=== PATIENT | female | born 2000 | race Caucasian/White ===

== ENCOUNTER 2020-12-09 21:02 | Emergency (ER) | payer MEDICAID, SELFPAY ==
[2020-12-09 21:06] VITALS: BP 107/69; PULSE 98; RESP 18; TEMP 36.6; O2SAT 98
[2020-12-09 21:21] LABS: Basophils Percent Auto 0.2 % (0.2-1.2); Eosinophils Absolute Auto 0.3 K/mm3 (0-0.3); Hemoglobin 13.4 g/dL (12.0-15.0); Immature Granulocyte Absolute 0.05 K/mm3 (0.00-0.031); Immature Granulocyte Percent A 0.4 % (0-0.5); Lymphocytes Absolute Auto 2.26 K/mm3 (0.9-3.2); Lymphocytes Percent Auto 18.2 % (18.3-44.2); Mean Corpuscular HGB Conc 33.5 g/dl (32-36); Mean Corpuscular Hemoglobin 29.5 pg (26-34); Mean Corpuscular Volume 88.1 fl (80-100); Mean Platelet Volume 10.8 fl (7.4-10.4); Monocytes Absolute Auto 0.6 K/mm3 (0.1-0.6); Monocytes Percent Auto 5.1 % (2.6-8.5); Neutrophils Absolute Auto 9.2 K/mm3 (1.3-6.7); Neutrophils Percent Auto 74.1 % (45.5-73.1); Platelet Count Result 263 k/mm3 (150-375); Red Blood Count 4.54 M/mm3 (4.2-5.4); Red Cell Distribution Width 13.1 % (11.5-14.5); White Blood Count 12.4 K/mm3 (4.5-10.0)
[2020-12-09 21:32] LABS: Alanine Aminotransferase 13 U/L (4-35); Alkaline Phosphatase 55 U/L (38-126); Anion Gap 7 mmol/L (8-16); Aspartate Amino Transferase 17 U/L (14-36); Bilirubin,Total 0.2 mg/dL (0.2-1.3); Blood Urea Nitrogen 11 mg/dL (7-17); Calcium 9.4 mg/dL (8.4-10.2); Carbon Dioxide 25 mmol/L (22-30); Chloride 106 mmol/L (98-107); Estimated CRCL calculation 128 ml/min; Estimated Glomerular Filt Rate > 60; Glucose 100 mg/dL (65-105); Lipase 59 U/L (23-300); Sodium 138 mmol/L (137-145)
[2020-12-09 21:40] LABS: Add Urine Microscopic? YES; Appearance Urine Cloudy (Clear); Bacteria Urine 1+ /hpf; Bilirubin Urine Negative (Negative); Calcium Oxalate Crystals Urine Present /hpf; Color Urine Yellow (Yellow); Glucose Urine UA Negative (Negative); Ketones Urine Negative (Negative); Leukocyte Esterase Ur 3+ LEU/UL (Negative); Mucus Urine Heavy /lpf; Nitrate Urine Negative (Negative); Protein Urine 2+ mg/dL (Negative); Specific Grav Ur 1.029 (1.001-1.035); Squamous Epithelial Cell Urine Many /hpf (Few); WBC Urine 31-50 /hpf
[2020-12-09 21:41] LABS: Blood Urine Negative (Negative)
--- NOTE | 2020-12-09 21:51 | ED.GENADULT ---
HPI - General Adult General Chief complaint: Nausea/Vomiting/Diarrhea Stated complaint: think i am dehydrated, need a work note Time Seen by Provider: 12/09/20 21:42 History of Present Illness HPI narrative: Patient is a 20-year-old female who presents to the ER with nausea and vomiting. Began earlier today. Has history of hyperemesis gravidarum during this . She follows with an OB at [facility]. No inciting events today. No abdominal pain. She is burning urination/urinary frequency. No fevers or chills or sweats. She has not tried any antiemetics. Review of Systems Review of Systems: All systems reviewed & are unremarkable except as noted in HPI and below Constitutional: Constitutional: Denies chills, Denies fever(s) and Denies weakness ENT: Denies nasal congestion and Denies sore throat Cardiovascular: Cardiovascular: Denies chest pain, Denies rapid heart rate and Denies radiating jaw, neck or arm pain Respiratory: Respiratory: Denies cough and Denies dyspnea Gastrointestinal: Gastrointestinal: Denies abdominal pain, Denies diarrhea, Reports nausea and Reports vomiting Genitourinary: Genitourinary: Denies abnormal vaginal bleeding, Denies nocturia, Denies dysuria and Denies flank pain PMFSH Past Medical History Medical History (Updated 12/09/20 @ 22:34 by Aristeo Thakkar MD) Hyperemesis Surgical History Surgical History (Updated 12/09/20 @ 21:53 by Aristeo Thakkar MD) No pertinent past surgical history Social History Social History (Updated 12/09/20 @ 21:55 by Aristeo Thakkar MD) Smoking status: Never smoker Exam Narrative: Exam Narrative: GENERAL: Well-appearing, well-nourished, and in no acute distress. HEAD: Normocephalic, atraumatic. CHEST: Clear to auscultation. No respiratory distress. HEART: Regular rate and rhythm. Normal peripheral pulses. ABDOMEN: Soft, nontender, nondistended. EXTREMITIES: Normal range of motion. No edema. No CVA tenderness. SKIN: Warm, dry, no rash. NEURO: Alert and oriented x3. PSYCH: Normal mood and affect. Course Course Emergency Course: Feeling improved. Given Macrobid for UTI. Discharge home. Vital Signs Vital signs: Vital Signs Temperature 97.9 F 12/09/20 21:06 Pulse Rate 98 12/09/20 21:06 Respiratory Rate 18 12/09/20 21:06 Blood Pressure 107/69 12/09/20 21:06 Pulse Oximetry 98 12/09/20 21:06 Temperature 97.9 F 12/09/20 21:06 Pulse Rate 98 12/09/20 21:06 Respiratory Rate 18 12/09/20 21:06 Blood Pressure 107/69 12/09/20 21:06 Pulse Oximetry 98 12/09/20 21:06 Medical Decision Making Vital Signs Vital Signs: Vital Signs Temperature 97.9 F 12/09/20 21:06 Pulse Rate 98 12/09/20 21:06 Respiratory Rate 18 12/09/20 21:06 Blood Pressure 107/69 12/09/20 21:06 Pulse Oximetry 98 12/09/20 21:06 Temperature 97.9 F 12/09/20 21:06 Pulse Rate 98 12/09/20 21:06 Respiratory Rate 18 12/09/20 21:06 Blood Pressure 107/69 12/09/20 21:06 Pulse Oximetry 98 12/09/20 21:06 Lab Data Result diagrams: 12/09/20 21:13 12/09/20 21:13 Labs: Lab Results 12/09/20 12/09/20 12/09/20 Range/Units 21:13 21:13 21:22 WBC 12.4 H (4.5-10.0) K/mm3 RBC 4.54 (4.2-5.4) M/mm3 Hgb 13.4 (12.0-15.0) g/dL Hct 40.0 (37.0-47.0) % MCV 88.1 (80-100) fl MCH 29.5 (26-34) pg MCHC 33.5 (32-36) g/dl RDW 13.1 (11.5-14.5) % Plt Count 263 (150-375) k/mm3 MPV 10.8 H (7.4-10.4) fl Immature Gran % (Auto) 0.4 (0-0.5) % Neut % (Auto) 74.1 H (45.5-73.1) % Lymph % (Auto) 18.2 L (18.3-44.2) % [place] % (Auto) 5.1 (2.6-8.5) % Eos % (Auto) 2.0 (0-4.4) % Baso % (Auto) 0.2 (0.2-1.2) % Lymph # (Auto) 2.26 (0.9-3.2) K/mm3 [place] # (Auto) 0.6 (0.1-0.6) K/mm3 Eos # (Auto) 0.3 (0-0.3) K/mm3 Baso # (Auto) 0.0 (0.0-0.1) K/mm3 Abs Immat Gran (auto) 0.05 H (0.00-0.031) K/mm3 Absolute
[2020-12-09] MEDS: NITROFURANTOIN MONOHYD MACROCR 100 MG CAP PO (22:02)
[2020-12-09] MEDS: ONDANSETRON HCL ODT 4 MG TABLET PO (22:02)
--- NOTE | 2020-12-09 22:03 | PC.NURSE ---
pt given water for po challenge per md verbal order.
--- NOTE | 2020-12-09 22:44 | PC.NURSE ---
pt denies any vomiting at this time.
[2020-12-09 23:31] VITALS: BP 118/75; PULSE 90; RESP 18; O2SAT 99
== END 2020-12-09 23:32 | disposition home or self-care (01) ==
LOC: ANHED 23:02
PROVIDERS: Emergency Medicine; Emergency Provider Emergency Medicine
DX: O23.42 Unspecified infection of urinary tract in pregnancy, second trimester (principal); Z3A.18 18 weeks gestation of pregnancy
CPT/HCPCS: 36415; 80053; 81001; 81025; 83690; 85025; 87086; 87088; 99283; A9270

== ENCOUNTER 2021-04-28 19:17 | Emergency (ER) | payer BC, SELFPAY ==
[2021-04-28] VITALS (12 sets, daily range): BP systolic 117–125; BP diastolic 72–88; PULSE 57–84; RESP 14–22; TEMP 36.7; O2SAT 98–100
[2021-04-28 21:11] LABS: Alanine Aminotransferase 52 U/L (4-35); Albumin Level 3.7 g/dL (3.5-5.1); Alkaline Phosphatase 208 U/L (38-126); Anion Gap 9 mmol/L (8-16); Aspartate Amino Transferase 30 U/L (14-36); Bilirubin,Total 0.4 mg/dL (0.2-1.3); Blood Urea Nitrogen 11 mg/dL (7-17); Calcium 9.1 mg/dL (8.4-10.2); Carbon Dioxide 24 mmol/L (22-30); Chloride 104 mmol/L (98-107); Estimated CRCL calculation 112 ml/min; Estimated Glomerular Filt Rate > 60; Glucose 80 mg/dL (65-110); Potassium 3.9 mmol/L (3.4-5.0); Sodium 137 mmol/L (137-145)
[2021-04-28] MEDS: SODIUM CHLORIDE 0.9% IV 1,000 ML 999 ML IV CONT ×2 (21:23→22:47)
[2021-04-28 21:27] LABS: Basophils Percent Auto 0.4 % (0.2-1.2); Eosinophils Absolute Auto 0.2 K/mm3 (0-0.3); Eosinophils Percent Auto 2.1 % (0-4.4); Hematocrit 33.8 % (37.0-47.0); Hemoglobin 10.9 g/dL (12.0-15.0); Immature Granulocyte Absolute 0.05 K/mm3 (0.00-0.031); Immature Granulocyte Percent A 0.6 % (0-0.5); Lymphocytes Absolute Auto 2.28 K/mm3 (0.9-3.2); Lymphocytes Percent Auto 25.1 % (18.3-44.2); Mean Corpuscular HGB Conc 32.2 g/dl (32-36); Mean Corpuscular Hemoglobin 27.7 pg (26-34); Mean Platelet Volume 10.6 fl (7.4-10.4); Monocytes Absolute Auto 0.6 K/mm3 (0.1-0.6); Monocytes Percent Auto 6.8 % (2.6-8.5); Neutrophils Absolute Auto 5.9 K/mm3 (1.3-6.7); Platelet Count Result 326 k/mm3 (150-375); Red Blood Count 3.93 M/mm3 (4.2-5.4); Red Cell Distribution Width 14.1 % (11.5-14.5); White Blood Count 9.1 K/mm3 (4.5-10.0)
--- NOTE | 2021-04-28 21:58 | ED.FEMALEGU ---
HPI - Female Genitourinary General Chief complaint: Vaginal Bleeding Stated complaint: Vaginal bleed Time Seen by Provider: 04/28/21 19:20 History of Present Illness HPI Narrative: Patient is a 21-year-old female who presents ER with vaginal bleeding. She is currently 6 days from vaginal delivery at [facility]. She sees Dr. Traore with MFM due to hyperemesis and her bipolar disorder. Patient reports lochia saturating three pads a day since her delivery. Tonight she felt her pants and then passed multiple clots that were the size of the leg. She feels weak and lightheaded. No vaginal discharge. Denies fevers or chills or sweats. She has no history of bleeding disorder. Related Data Allergies Allergy/AdvReac Type Severity Reaction Status Date / Time cephalexin AdvReac Hives Verified 04/28/21 19:28 Review of Systems Review of Systems: All systems reviewed & are unremarkable except as noted in HPI and below Constitutional: Constitutional: Denies chills and Reports fatigue ENT: Denies nasal congestion and Denies sore throat Cardiovascular: Cardiovascular: Denies chest pain, Denies rapid heart rate and Denies radiating jaw, neck or arm pain Respiratory: Respiratory: Denies cough and Denies dyspnea Gastrointestinal: Gastrointestinal: Denies abdominal pain, Denies nausea and Denies vomiting Genitourinary: Genitourinary: Reports abnormal vaginal bleeding, Denies nocturia, Denies dysuria and Denies flank pain PMFSH Past Medical History Medical History (Updated 04/28/21 @ 22:10 by Aristeo Thakkar MD) Depression Hyperemesis Surgical History Surgical History (Updated 12/09/20 @ 21:53 by Aristeo Thakkar MD) No pertinent past surgical history Social History Social History (Updated 12/09/20 @ 21:55 by Aristeo Thakkar MD) Smoking status: Never smoker Exam Narrative: GENERAL: Well-appearing, well-nourished, and in no acute distress. HEAD: Normocephalic, atraumatic. ENT: Mucous membranes moist. CHEST: Clear to auscultation. No respiratory distress. HEART: Regular rate and rhythm. Normal peripheral pulses. ABDOMEN: Soft, nontender, nondistended : Moderate amount of clot evacuated from the vagina. Pooling continuing. Cervical os is open and endometrium appears to be protruding. No discharge. Nontender. EXTREMITIES: Normal range of motion. No edema. NEURO: Alert and oriented x3.\ Course Course Emergency Course: Moderate amount of clot removed during pelvic exam. Continued swelling. Patient then with near syncope during orthostatic vital signs and collapsed onto the bed. Discussed with MFM fellow at [facility]. They have accepted patient for transfer to OB triage which acts as a ER to ER transfer. Accepted by Dr. Muro. Patient has received 1 L of IV fluid and will receive a second liter. Reevaluation(s) Reevaluation #1: I had a prolonged conversation with the patient about transfer via ambulance. After she had agreed she then changed her mind. She has been educated on the risks of leaving the hospital AGAINST MEDICAL ADVICE while bleeding. She is willing to take these risks. She does not want to go to the hospital by ambulance and prefers to go by private vehicle. We will alert [facility] that this patient has signed out and is heading their way by private vehicle as a courtesy. Additionally we will also send lab work with the patient. Date: 04/28/21 Time: 23:40 Vital Signs Vital signs: Vital Signs Temperature 98.1 F 04/28/21 19:19 Pulse Rate 78 04/28/21 19:19 Respiratory Rate 18 04/28/21 19:19 Blood Pressure 124/88 04/28/21 19:19 Pulse Oximetry 100 04/28/21 19:19 Temperature 98.1 F 04/28/21 19:19 Pulse Rate 80 04/28/21 23:11 Respiratory Rate 17 04/28/21 22:45 Blood Pressure 117/72 04/28/21 23:11 Pulse Oximetry 100 04/28/21 22:45 MDM - Female Genitourinary Lab Data Result diagrams: 04/28/21 20:49 04/28/21 20:49
--- NOTE | 2021-04-28 23:06 | PC.NURSE ---
2252: Called [facility] for ALS transport to [place] - OB/Triage. ETA [id number]
--- NOTE | 2021-04-28 23:38 | PC.NURSE ---
[facility] called with updated ETA...approximately [id number]
--- NOTE | 2021-04-28 23:51 | PC.NURSE ---
Pt states she does not wish to wait for an ambulance any longer that she would prefer to transfer by POV. Explained the risks associated with this and that the physician does not agree with this decision. Pt signed out AMA and will transfer by POV. PT's IV removed and taken to car via w/c.
--- NOTE | 2021-04-28 23:53 | PC.NURSE ---
Called [facility] and cancelled request for transport. Patient transporting by private vehicle to accepting facility.
== END 2021-04-29 00:01 | disposition left against medical advice (07) ==
PROVIDERS: Emergency Provider Emergency Medicine
DX: O72.2 Delayed and secondary postpartum hemorrhage (principal); R55 Syncope and collapse; O99.345 Other mental disorders complicating the puerperium; F31.9 Bipolar disorder, unspecified
CPT/HCPCS: 36415; 80053; 85025; 96360; 96361; 99284; J7030

== ENCOUNTER 2021-10-20 17:05 | Emergency (ER) | payer BC, SELFPAY ==
[2021-10-20 17:11] VITALS: BP 116/76; PULSE 93; RESP 20; TEMP 36.6; O2SAT 98
--- NOTE | 2021-10-20 17:28 | ED.ABDPAIN ---
HPI - Abdominal Pain General Chief Complaint: Abdominal Pain Stated Complaint: RUQ pain x 1 week Time Seen by Provider: 10/20/21 17:19 Source: patient Mode of arrival: ambulatory Limitations: no limitations History of Present Illness HPI narrative: Patient is a 21-year-old female complaining of right upper quadrant pain, 6 out of 10, sharp, nonradiating accompanied by nausea that started 1 week ago. Patient denies any chest pain, shortness of breath, back pain, vomiting, diarrhea, fever or chills. Related Data Home Medications Medication Instructions Recorded Confirmed No Home Medications 10/20/21 10/20/21 Allergies Allergy/AdvReac Type Severity Reaction Status Date / Time cephalexin AdvReac Hives Verified 04/28/21 19:28 Review of Systems Review of Systems: All systems reviewed & are unremarkable except as noted in HPI and below Constitutional: Constitutional: Denies body ache(s), Denies chills, Denies excessive sweating, Denies fatigue, Denies fever(s), Denies headache(s), Denies lethargy, Denies malaise, Denies weakness and Denies weight loss Eyes: Eyes: Denies blurry vision, Denies change in vision and Denies loss of vision ENT: Denies dizziness, Denies ear discharge, Denies headache(s), Denies lip swelling, Denies epistaxis, Denies nasal congestion, Denies neck pain, Denies throat swelling and Denies tongue swelling Cardiovascular: Cardiovascular: Denies chest pain, Denies chest pain at rest, Denies chest pain with activity, Denies diaphoresis, Denies rapid heart rate, Denies edema, Denies irregular heart rhythm, Denies lightheadedness, Denies palpitations, Denies dyspnea and Denies dyspnea on exertion Respiratory: Respiratory: Denies chest congestion, Denies cough, Denies hemoptysis, Denies dyspnea and Denies dyspnea on exertion Gastrointestinal: Gastrointestinal: Denies melena, Denies hematochezia, Denies diarrhea, Denies vomiting and Denies hematemesis Musculoskeletal: Musculoskeletal: Denies abnormal gait, Denies deformity, Denies joint swelling, Denies limited range of motion, Denies neck pain and Denies numbness Neurologic: Denies Abnormal speech present, Denies abnormal gait, Denies confusion, Denies dizziness, Denies headache(s), Denies focal weakness, Denies loss of vision, Denies numbness, Denies Other visual disturbances, Denies Sensory deficit (Neuro) and Denies weakness Psychiatric: Psychiatric: Denies confusion, Denies depression, Denies auditory hallucinations, Denies homicidal ideation and Denies suicidal ideation Endocrine: Endocrine: Denies cold intolerance, Denies excessive sweating, Denies fatigue, Denies heat intolerance and Denies palpitations Hematologic/Lymphatic: Hematologic/Lymphatic: Denies easy bleeding and Denies easy bruising Allergic/Immunologic: Allergic/Immunologic: Denies lip swelling, Denies throat swelling and Denies tongue swelling PMFSH Past Medical History Medical History Depression Hyperemesis Surgical History Surgical History No pertinent past surgical history Social History Social History Smoking status: Never smoker Exam Const: General: cooperative, healthy appearing, comfortable, no acute distress, well developed, alert and awake; No confusion Orientation/consciousness: oriented to person, oriented to place, oriented to time, patient oriented x3 and No confusion Limitations: no limitations HENMT: Head: normal to inspection, normocephalic and atraumatic Ears: hearing grossly normal bilaterally, TM normal on the right and TM normal on the left General nose exam: Normal external nose present, Normal nares present and No nasal discharge present Face and sinus: normal facial exam Mouth: Yes Normal oral and palatal mucosa present, Yes lip normal, Yes tongue normal and Yes oropharynx normal Throat
[2021-10-20 17:43] LABS: Basophils Percent Auto 0.3 % (0.2-1.2); Eosinophils Absolute Auto 0.1 K/mm3 (0-0.3); Eosinophils Percent Auto 1.5 % (0-4.4); Hematocrit 36.1 % (37.0-47.0); Hemoglobin 10.7 g/dL (12.0-15.0); Immature Granulocyte Absolute 0.01 K/mm3 (0.00-0.031); Immature Granulocyte Percent A 0.2 % (0-0.5); Immature Platelet Fraction Pct 4.3 % (0.9-11.2); Lymphocytes Absolute Auto 1.35 K/mm3 (0.9-3.2); Lymphocytes Percent Auto 20.9 % (18.3-44.2); Mean Corpuscular HGB Conc 29.6 g/dl (32-36); Mean Corpuscular Hemoglobin 21.9 pg (26-34); Mean Platelet Volume 10.7 fl (7.4-10.4); Monocytes Absolute Auto 0.7 K/mm3 (0.1-0.6); Monocytes Percent Auto 10.2 % (2.6-8.5); Neutrophils Absolute Auto 4.3 K/mm3 (1.3-6.7); Neutrophils Percent Auto 66.9 % (45.5-73.1); Platelet Count Result 261 k/mm3 (150-375); Red Blood Count 4.88 M/mm3 (4.2-5.4); Red Cell Distribution Width 19.2 % (11.5-14.5); White Blood Count 6.5 K/mm3 (4.5-10.0)
[2021-10-20 17:53] LABS: Alanine Aminotransferase 20 U/L (4-35); Albumin Level 4.5 g/dL (3.5-5.1); Alkaline Phosphatase 53 U/L (38-126); Anion Gap 5 mmol/L (8-16); Aspartate Amino Transferase 20 U/L (14-36); Bilirubin,Total 0.4 mg/dL (0.2-1.3); Blood Urea Nitrogen 12 mg/dL (7-17); Carbon Dioxide 25 mmol/L (22-30); Chloride 107 mmol/L (98-107); Estimated CRCL calculation 112 ml/min; Estimated Glomerular Filt Rate > 60; Glucose 99 mg/dL (65-110); Lipase 57 U/L (23-300); Sodium 137 mmol/L (137-145)
[2021-10-20 18:00] LABS: Add Urine Microscopic? YES; Appearance Urine Clear (Clear); Bacteria Urine Trace /hpf; Bilirubin Urine Negative (Negative); Blood Urine Negative (Negative); Color Urine Yellow (Yellow); Glucose Urine UA Negative (Negative); Ketones Urine Negative (Negative); Leukocyte Esterase Ur Trace LEU/UL (Negative); Mucus Urine Moderate /lpf; Nitrate Urine Negative (Negative); Protein Urine 1+ mg/dL (Negative); Squamous Epithelial Cell Urine Many /hpf (Few); Urobilinogen Urine Negative mg/dL (<2.0); WBC Urine 16-20 /hpf
[2021-10-20 18:04] LABS: Hypochromasia 1+ (NORMAL); Ovalocytes 1+ (NORMAL); Platelet Estimate Adequate (Adequate)
[2021-10-20 18:08] LABS: Specific Grav Ur 1.035 (1.001-1.035)
[2021-10-20] MEDS: ONDANSETRON INJ 4 MG/2 ML VIAL IV PUSH (18:53)
[2021-10-20] MEDS: KETOROLAC 30 MG/ML VIAL (*BKC) IV PUSH (18:53)
== END 2021-10-20 19:10 | disposition home or self-care (01) ==
PROVIDERS: Emergency Medicine; Emergency Provider Emergency Medicine; PCP Family Medicine
DX: K80.50 Calculus of bile duct without cholangitis or cholecystitis without obstruction (principal)
CPT/HCPCS: 36415; 80053; 81001; 81025; 83690; 85025; 85055; 87086; 87088; 96374; 96375; 99284; J1885; J2405